=== PATIENT | male | born 1990 | race Caucasian/White ===

== ENCOUNTER → 2017-06-09 | Day surgery (SDC) | payer BC ==
[~2017-06-09] VITALS: Ht 180.3 cm; Wt 72.5 kg
[~2017-06-09] MED LIST: BUPIVACAINE/EPINEPHRINE 0.25% PF 30 ML VIAL ONE; BUPIVACAINE/EPINEPHRINE 0.5% PF 30 ML VIAL ONE; CHLORHEXIDINE GLUCONATE 2 % 1 PACK (2 CLOTHS) TOPICAL PRN; CLIN150 PO; DIVA500T PO; HYDR-3533 PO; LACTATED RINGER'S 1000 ML IV PRN; MEPERIDINE HCL 25 MG/ML VIAL ONE; METOPROLOL TARTRATE 25 MG TAB PO PRN; MIDAZOLAM HCL 2 MG/2 ML VIAL ONE; ONDANSETRON HCL 4 MG/2 ML VIAL ONE; POVIDONE IODINE 5% (ANTISEPSIS KIT) 4 APPLICATIONS EACH NARE PRN; SODIUM CHLORID 0.9% 500 ML IV PRN; SODIUM CHLORIDE 0.9% INJ 100 ML ONE; VANCOMYCIN 500 MG VIAL ONE
[2017-06-09 17:41] VITALS: PULSE 94
[2017-06-09 18:16] VITALS: BP 142/80; PULSE 64; RESP 16; TEMP 97.5; O2SAT 98
--- NOTE | 2017-06-09 20:42 | MP ---
cc: PEDRO HAY MD DATE OF SURGERY 06/09/17 PREOPERATIVE DIAGNOSIS Recurrent anterior shoulder dislocation. POSTOPERATIVE DIAGNOSIS Recurrent anterior shoulder dislocation. PROCEDURE Right shoulder arthroscopy with anterior reconstruction utilizing Arthrex anchors (arthroscopic Bankart procedure). PROCEDURE IN DETAIL Informed consent was obtained. The patient taken to the operating room and placed in a supine position on the operating room table. He was administered general anesthesia by the anesthesiologist. At that time, he was placed in the lateral decubitus position on the hip positioner. The right shoulder was up. A sterile U-drape was applied about the shoulder. The shoulder was prepped with Betadine soap followed by Betadine paint. The patient received 500 of vancomycin prior to initiation of the operative procedure. At that time, the shoulder was prepped with Betadine soap followed by Betadine paint. Draping commenced with sterile down sheet, sterile towels about the shoulder, split sheet stockinette was applied over the hand and forearm. This was attached to the Arthrex shoulder ddoson. The stockinette was wrapped with Coban. A time-out was held and confirmed. At that time, an 18 gauge spinal needle was placed approximately 1 cm inferior to the posterior angle of the acromion, directed towards the coracoid process. The shoulder joint was entered and infiltrated with 10 mL of 0.25% Marcaine with epinephrine. At that time, a small incision was made with an 11-blade. The arthroscopic cannulas was introduced into the shoulder joint. The inflow was attached to this cannula. The biceps tendon was intact. The attachment of the superior biceps to the labrum did appear to be slightly elongated. There was a large Bankart lesion noted at the anterior aspect of the patient's shoulder. The labrum was probed. Next, using the Arthrex shoulder fixation system an Arthrex suture lasso was placed around the base of the biceps tendon region. A small hole was drilled utilizing the cannula system and a 2.9 Arthrex anchor was utilized to anchor the superior portion of the labrum. Two additional anterior anchors were placed. There were some degenerative changes noted on the glenoid and the humeral head and there was a Hill-Sachs lesion noted. It appeared that satisfactory reconstruction had been obtained by use of these anchors. At that time, the shoulder was irrigated and the cannulas were removed. The posterior cannula was placed in the subacromial bursa which otherwise appeared normal. There was no subacromial decompression performed today. At that time, shoulder was suctioned. The portals were closed. Posterior portals were closed with two 4-0 nylon sutures. The anterior portal was closed with a 3-0 plain and three 4-0 nylon interrupted stitches. Steri-Strips, Xeroform, 4x4s, ABD and tape were applied to the patient's shoulder. He was placed in a sling. He tolerated procedure well and was then taken to the recovery room in stable condition. At the completion of the procedure, sponge count, instrument counts and needle counts were correct. Estimated blood loss was approximately 50 mL. HISTORY OBJECTIVE . Patrick: Thank you MD [place] Pickett/ /5:42 PM /8:28 PM
== END | disposition home or self-care (01) ==
LOC: PHSDC 11:46
PROVIDERS: ATTEND Orthopaedic Surgery
DX: M24.411 Recurrent dislocation, right shoulder (principal)
CPT/HCPCS: 01630; 29806; 64415; C1713; J2175; J2250; J2405; J3370; J7120